=== PATIENT | male | born 1945 | race Caucasian/White ===

== ENCOUNTER → 2017-06-14 17:41 | Outpatient (CLI) | payer MEDICARE, BC ==
[2014-01-07 13:52] VITALS: BMI 21.0
[~2017-06-14 17:41] MED LIST: ELIQUIS2.5 MG PO; FEROCON CAPSUL1 EACH PO; HYDROCODONE-APA1 TAB PO; PROTONIX 40 MG40 MG PO; PROTONIX40 MG PO; ZOCOR10 MG PO
[2017-07-24 14:05] VITALS: BMI 22.0
== END | disposition home or self-care (01) ==
LOC: D.LABREF 17:41
DX: M16.12 Unilateral primary osteoarthritis, left hip (principal); Z11.8 Encounter for screening for other infectious and parasitic diseases

== ENCOUNTER 2017-07-19 10:00 | Inpatient (IN) | payer MEDICARE, BC ==
[~2017-07-19] VITALS: Ht 165.1 cm; Wt 60.0 kg
[~2017-07-19 10:00] MED LIST changes: -ELIQUIS2.5 MG PO
[2017-07-19 11:08] LABS: APPEARANCE CLEAR (CLEAR); BILIRUBIN NEGATIVE (NEGATIVE); COLOR YELLOW (YELLOW); GLUCOSE NEGATIVE (NEGATIVE); KETONE NEGATIVE (NEGATIVE); NITRITE NEGATIVE (NEGATIVE); PROTEIN NEGATIVE (NEGATIVE); UROBILINOGEN NORMAL (NORMAL)
[2017-07-19 11:28] LABS: BASOPHILS 1.1 % (0-2); EOSINOPHILS 3.4 % (0-7); HEMATOCRIT 46.9 % (42.0-54.0); HEMOGLOBIN 15.7 g/dL (13.5-17.5); IMMATURE GRANULOCYTES 0.2 % (0-5); LYMPHOCYTES 34.7 % (15-50); MCH 31.8 pg (26.0-34.0); MCHC 33.5 g/dL (31.0-37.0); MCV 94.9 fL (80.0-100.0); MEAN PLATELET VOLUME 10.3 fL (7.4-10.4); MONOCYTES 8.9 % (2-11); NEUTROPHILS 51.7 % (40-80); PLATELET COUNT 225 10x3/uL (130-400); RBC 4.94 10x6/uL (4.20-6.10); WBC 5.6 10x3/uL (4.8-10.8)
[2017-07-19 11:39] LABS: CALC OSMOLALITY 272 mosm/kg (275-300); CALCIUM 9.2 mg/dL (8.5-10.1); CARBON DIOXIDE 29.6 mmol/L (21.0-32.0); CHLORIDE - SERUM 103 mmol/L (98-107); CREATININE - SERUM 0.8 mg/dL (0.6-1.3); GLUCOSE 88 mg/dL (74-106); POTASSIUM - SERUM 4.1 mmol/L (3.5-5.1); SODIUM 136 mmol/L (136-145); UREA NITROGEN 17 mg/dL (7-18); eGFR NON AFRICAN AMERICAN > 90 mL/min (90-120)
[2017-07-19 11:43] LABS: APTT 30.1 SECONDS (22.8-39.4); INR 0.97 (0.85-1.17); PROTIME 12.7 SECONDS (11.6-15.0)
[2017-07-24] VITALS: BP 94/50
[2017-07-24 09:45] VITALS: BP 198/58; BMI 22.0
[2017-07-24 13:57] VITALS: BP 141/86
[2017-07-24 14:05] VITALS: BP 143/80; Ht 165.1 cm; Wt 60.0 kg
[2017-07-24 15:30] VITALS: BP 142/50
[2017-07-24 20:00] VITALS: BP 90/47
[2017-07-25 05:22] VITALS: BP 90/52
[2017-07-25 06:01] LABS: HEMATOCRIT 39.4 % (42.0-54.0); HEMOGLOBIN 12.9 g/dL (13.5-17.5); MCH 31.5 pg (26.0-34.0); MCHC 32.7 g/dL (31.0-37.0); MCV 96.3 fL (80.0-100.0); MEAN PLATELET VOLUME 10.7 fL (7.4-10.4); RBC 4.09 10x6/uL (4.20-6.10); WBC 12.1 10x3/uL (4.8-10.8)
[2017-07-25 08:13] VITALS: BP 95/52
[2017-07-25] MEDS ORDERED: ELIQUIS2.5 MG PO (08:22)
[2017-07-25] MEDS ORDERED: HYDROCODONE-APA1 TAB PO (08:23)
[2017-07-25 12:08] VITALS: BP 103/52
--- NOTE | 2017-07-25 13:09 | OP ---
PATIENT NAME: NITA SIMS MEDICAL RECORD: [id number] LOCATION:[id number] ADMISSION DATE:07/24/17 SURGEON: NUVIA NARVAEZ MD DATE OF OPERATION: 07/24/2017 PREOPERATIVE DIAGNOSIS: Degenerative arthritis of the left hip. POSTOPERATIVE DIAGNOSIS: Degenerative arthritis of the left hip. PROCEDURE: Left total hip arthroplasty. SURGEON: Nuvia Narvaez MD ANESTHESIA: General. INTRAOPERATIVE COMPLICATIONS: None. SUMMARY OF PATHOLOGIC FINDINGS: The patient was indeed found to have severe arthritis of the left hip. IMPLANTS USED: Jerry Anato total hip size 6 left with a 54-mm cup alpha code E, 36 mm 0-degree polyethylene insert alpha code E, anatomic femoral head 36 mm +0. OPERATIVE SUMMARY IN DETAIL: After obtaining the appropriate preoperative orthopedic surgery consents as well as anesthetic consultation, evaluation, and clearance, the patient was brought to the operating room and placed on the operating table in supine position. After general laryngeal mask was administered, the patient was placed in a right lateral decubitus position. All pressure points were well padded to include down leg peroneal pad as well as axillary roll. The patient was held firmly to the operating table using the vacuum pack suction system. Left lower extremity and hip were then prepped and draped in routine sterile fashion. Curvilinear incision was made over the greater trochanter, taken down the level of the IT band which was split in line with fibers of the IT band to reveal the gluteus medius and minimus attachment. These were reflected anteriorly. The hip capsule was split in a T-type fashion and saved for later reapproximation. Hip was dislocated and femoral neck cut was made using the femoral neck cutting guide from the Anato system. The acetabulum was thoroughly exposed. Circumferential labrectomy was followed by serial and sequential reaming to a size 53. Size 54 hip cup was put into place with excellent capture. Polyethylene was snapped into place and checked with a Basia, it was firmly seated. Attention was then turned to the proximal femur. Sherrie cutter was then followed by serial broaching for a size 6 Anato stem. Size 6 Anato stem was put into place. Trial was undertaken with the variable femoral head length. Size 0 was the most appropriate. Size [address] on the Esposito taper. The hip was reduced. Intraoperative radiographs were taken and showed good position and placement with good zoroastrian of length. Having completed this, the wound was copiously irrigated. The hip capsule was closed with #2 Ethibond followed by reapproximation of the gluteus medius and minimus back to the greater trochanter in a transosseous fashion using #5 Ethibond. The IT band was closed with #2 Ethibond followed by #1 Vicryl and skin william. Sterile dressings were applied. The patient was awakened, taken to the recovery room in stable condition. All final needle and sponge counts were correct. OPERATIVE REPORT [id number] NITA SIMS TRANSINT:[id number] Voice Confirmation ID: [id number] DOCUMENT ID: [id number] SOLANGE TAVERAS, NUVIA DENISE at 1309 CC: [id number] DICTATION DATE: 07/24/17 1252 PODIATRY ASSISTANT: 07/24/171916 ADM IN [facility] [address] [place] [address]
== END 2017-07-25 14:01 | disposition home or self-care (01) | DRG 470 ==
LOC: D.SDCHOLD 10:00 → D.MS 07-24 13:35
PROVIDERS: ADMIT Orthopaedic Surgery
PROC: 0SRB0JZ Replacement of Left Hip Joint with Synthetic Substitute, Open Approach (ICD-10-PCS; principal; 2017-07-24 11:30)
DX: M16.12 Unilateral primary osteoarthritis, left hip (principal); Z87.891 Personal history of nicotine dependence